=== PATIENT | male | born 1980 | race Caucasian/White ===

== ENCOUNTER 2021-06-09 13:55 | Outpatient (CLI) | payer OTHER ==
--- NOTE | 2021-06-09 18:52 | MRI Report ---
PROCEDURE: Cervical Spine W/O INDICATIONS: PARASTHESIA OF SKIN TECHNIQUE: Noncontrast sagittal T1 spin echo and T2 fast spin echo, sagittal STIR, foraminal oblique sagittal T2 fast spin echo, and axial gradient echo or T2 fast spin echo through the cervical spine. COMPARISON: None. FINDINGS: Image quality: Excellent. Alignment and Curvature: There is normal bony alignment. Bone Marrow: Marrow demonstrates normal overall signal. Spinal Cord: Visualized spinal cord has normal size and signal. No cerebellar tonsillar herniation. Paraspinous Soft Tissues: No paravertebral masses. Prevertebral soft tissues are normal in thicknes s. Discs: Minimal to mild desiccation is present throughout the cervical spine. C2-C3: No disc bulge, spinal stenosis or foraminal narrowing. C3-C4: Minimal disc bulge without spinal stenosis. No foraminal narrowing. C4-C5: Mild disc bulge without spinal stenosis. Minimal bilateral foraminal narrowing with uncoverte bral hypertrophy. C5-C6: Minimal disc bulge without spinal stenosis. Questionable minimal bilateral foraminal narrowin g. C6-C7: Minimal disc bulge without spinal stenosis. Mild left and [id number] right foraminal na rrowing with uncovertebral hypertrophy. C7-T1: No disc bulge, spinal stenosis or foraminal narrowing. IMPRESSION: Early degenerative changes most notable at C6-7 demonstrating mild to moderate foraminal narrowing. Reviewed by: Dedra Rivas MD on 06/09/2021 5:51 PM JAZMIN Approved by: Dedra Rivas MD on 06/09/2021 5:51 PM JAZMIN Station ID: [id number]
== END 2021-06-09 13:56 | disposition home or self-care (01) ==
LOC: DI 13:55
PROVIDERS: ATTEND Student in an Organized Health Care Education/Training Program
DX: M47.812 Spondylosis without myelopathy or radiculopathy, cervical region (principal)

== ENCOUNTER 2021-07-02 08:30 | Outpatient (CLI) | payer OTHER ==
[2021-07-02 09:15] VITALS: BP 131/98
--- NOTE | 2021-07-02 09:15 | SLEEP CARE CONSULTATION ---
Information from patient questionnaire entered by Barbara Juárez MA. I have reviewed and concur with the information entered by Barbara Juárez MA. This document represents the service I personally performed and the decisions made by me, Ivet Luis ARNP. History of Present Illness Service Date and Time: 07/02/2021 0830 Reason for Visit: New patient (ONSET 06/2011, ) Chief Complaint: reports: Insomnia, Unrefreshed sleep, Snoring, Excessive daytime sleepiness, Frequent awakenings at night Date of Onset: 7-12 YEARS Usual bedtime: 930 PM Time it takes to fall asleep: 2-3 HOURS Snores at night: Yes (SOMETIMES) Observed to quit breathing while asleep: No Sleeps alone due to snoring: No Number of times waking at night: 4-6 Reasons for waking at night: reports: Snoring, Bathroom, Other (noise; tossing/turning) Toss, Turn, or Twitch while sleeping: Yes Recalls having dreams: Yes Usually gets out of bed at: WEEK 0600 WEEKENDS [id number] Feels refreshed in the morning: No Morning headache: Yes (SOMETIMES; 1 time a week lasting couple hours; takes tylenol or motrin) Sleepy or fatigued during the day: Yes Ever fallen asleep while driving: No Takes day naps: No Dreams during day naps: No Prior sleep studies: Yes Year and Where: [facility] Additional HPI information: I had the pleasure of seeing KRISTA HARDIN today regarding the possibility of him having a sleep disorder. His current complaints are insomnia, unrefreshed sleep, snoring, excessive daytime sleepiness and frequent night awakenings. He is working with his allergy doctor for his chronic cough and it is not improving. At his last yearly appointment, they talked about his sleep and he was referred here because of his snoring and unrefreshed sleep. He states he is always tired in the mornings. He has difficulty going to sleep, can take 2-3 hours to fall asleep initially, and will take melatonin and sometimes Benadryl to go to sleep. He did have a sleep study in 2017 and was told he slept fine and recommended a stimulant in the morning. He started drinking caffeine drinks in the morning but did not like them and now he forces himself to drink a cup of coffee in the morning. He will wake up 4-6 times a night and sometimes not be able to go to sleep. He will toss and turn throughout the night. - Parasomnia Symptoms Ever been unable to move upon waking from sleep: No Walks in sleep: No Talks in sleep: No Ever acted out dreams in sleep: No Ever felt weak in the knees when startled or emotional: No Bothered by creepy, crawly, restless sensations in legs: No Problems with memory or concentration: No Subjective Initial [place] Sleepiness Scale score: 9 (06/2021) Past Medical History Past Medical History: reports: Arthritis, Anxiety, Depression, Other (tonsillectomy Dec 2019; bilateral carpal tunnel surgery; 2005 back and left foot surgery; 2012 CV joint surgery daisy shoulders) Social History The patient's occupation is a AM. Patient is and lives in [place]. Have you smoked in the past 12 months: No Alcohol use: Yes Alcohol amount and frequency: 12 X WEEKLY Caffeine use: Yes Caffeine amount and frequency: 1 X DAILY Family History Family history of sleep disordered breathing: Yes Family Hx Sleep Apnea: Mother: Snoring, Father: Snoring, Grandparent: Snoring Allergies and Home Medications Known drug allergies: No Drug allergies reviewed: Yes (NKDA) Home medication list reviewed: Yes Allergy and home medication list: Medications: Bupropion Omeprazole (for chronic cough, may be reflux related) Zyrtec Flonase Taking allergy shots for his allergies Review of Systems Weight gain over past 5 years: 20 - 30 Cardiovascular: denies: high blood pressure Respiratory: reports: chronic cough Gastrointestinal: reports: heartburn, other (reflux) Urinary: reports: frequency, urgency (sometimes) Neurological: reports: headaches Psychiatric: reports: anxiety (mild), depression (mild) Ear/Nose/Throat: reports: nasal congestion, tonsillectomy, wisdom teeth removed Endocrine: reports: sluggishness Musculoskeletal: reports: joint pain, neck pain, back pain, joint swelling, muscle pain or cramping, mobility problems Immunologic: reports: sneezing, itching, allergies to food or environment (environmental - grasses, pollens) Physical Exam Vital signs obtained and entered by: Pascale JUÁREZ CMA [facility] Blood Pressure: 131/98 (RESP 18, PULSE 71, RIGHT) Cuff size: wrist Heart Rate: 81 O2 Saturation: 97 (PAPER MASK) Height: 5 ft 10 in Weight: 200 lb (CLOTH) Body Mass Index: 28.7 BMI Classification: Overweight Neck circumference: 14 (INCHES) Mouth and throat: narrow oropharynx Soft palate: long Hard palate: normal Uvula: normal Uvula visualization: 50% Mallampati Class II Tongue: enlarged in size with teeth perez on lateral edges Tonsils: absent bilaterally Neck: normal w/o lymphadenopathy or thyromegaly Heart: regular rate and rhythm Lungs: clear bilaterally Impression and Plan 1. Suspected Obstructive Sleep Apnea-Hypopnea Syndrome, as suggested by a history of loud and irregular snoring, morning headache, frequent awakening during the night, unrefreshed sleep, and excessive daytime sleepiness. Narrow oropharynx and obesity are common predisposing factors for obstructive sleep apnea-hypopnea syndrome. I recommend proceeding to polysomnography to confirm the diagnosis and to assess severity. If the patient has significant sleep disordered breathing, a manual CPAP titration study will also be performed to find the optimal treatment pressure. I informed the patient of what the sleep studies involve and after some discussion, obtained agreement to proceed. The pathophysiology of obstructive sleep apnea-hypopnea syndrome was discussed with the patient and health risks of cardiovascular and cerebrovascular disease if not treated. Risks of drowsy driving discussed in detail and patient advised to avoid long distance driving and to mold puller at the first sign of drowsiness. Patient agreed to plan. * Schedule polysomnography * Avoid long distance driving or driving when feeling sleepy. * Avoid alcohol, sedative and muscle relaxant around bedtime. * Attempt to lose weight. * Review instructions provided by trained office staff on how to prepare for the sleep study. * Return for follow-up after sleep study completed. Counseling Topics: Weight loss health impact Visit Type: In Office Time Spent with Patient (minutes): 31 Provider Statement: I spent 100% of the Face to Face Visit with the patient with greater than 50% spent counseling the patient and coordination of care.
== END 2021-07-02 08:31 | disposition home or self-care (01) ==
LOC: SC 08:30
PROVIDERS: ATTEND Nurse Practitioner Family
DX: R06.83 Snoring (principal); R51.9 Headache, unspecified; G47.8 Other sleep disorders; G47.10 Hypersomnia, unspecified
CPT/HCPCS: 99203; 99212

== ENCOUNTER 2021-07-24 15:46 | Outpatient (CLI) | payer OTHER ==
[2021-07-24 16:24] VITALS: BP 118/72
--- NOTE | 2021-07-24 16:24 | SLEEP CARE CONSULTATION ---
Information from patient questionnaire entered by Barbara Juárez MA. I have reviewed and concur with the information entered by Barbara Juárez MA. This document represents the service I personally performed and the decisions made by , Ivet Luis ARNP. History of Present Illness Service Date and Time: 07/24/2021 1546 Initial [place] Sleepiness Scale score: 9 (06/2021) Current [place] Sleepiness Scale score: 10 (07/25/2021) Additional HPI information: KRISTA HARDIN returns for follow up and results of the recently performed home sleep study. I explained the pathophysiology behind obstructive sleep apnea. We then spent quite a bit of time discussing different treatment options. For mild obstructive sleep apnea, surgery and oral appliance are alternatives to nasal CPAP therapy but in moderate or severe cases, nasal CPAP is the most effective and reliable treatment. Because apnea is primarily in supine position, then positional management therapy could be effective. Methods discussed such as positioning with pillows to prevent supine sleep. I reviewed the impact of weight changes on sleep apnea and strongly recommended losing weight. After some discussion, the patient opted to go with the nasal CPAP therapy. Nasal autoCPAP set at 4-15 cmH20 will be ordered with rationale explained. A manual titration study will be ordered if unable to find optimal pressure with office adjustments. I explained how CPAP machine works and what to expect when using the machine. Using CPAP every night in order to get used to it was emphasized. Patient advised to put CPAP mask on before getting into bed so as not to fall asleep without CPAP. To assist acclimation to CPAP use, it could also be used for a short time during day while reading or watching TV. The patient was instructed to call the CPAP supplier to discuss any mechanical problem that may occur. If the mask given is uncomfortable or is difficult to keep on through the night even with adjustment, contact the CPAP supplier as many will replace with ano ther mask style if notified before 30 days. If snoring or perceives is not getting enough air or too much air from the machine, notify this office. Patient counseled not drink alcohol less than 4 hours before bedtime as it can increase snoring and apnea. Patient was cautioned about risks of drowsy driving until sleepiness symptoms resolve. Sleep Study - Results Type of Sleep Study: Home sleep study (F/U HOME STUDY, 07/08/2021 [facility], [facility],) Prior sleep studies: Yes Year and Where: [facility] Polysomnography/Home Sleep Study results: Physician Impression: The quality of the study is good. The length of the study is adequate (> 240 minutes). Please also see the tabulated and graphic data. 1. Obstructive Sleep Apnea-Hypopnea (ICD-10 G47.33), mild, with an AHI of 5.1/hr and viviana SaO2 of 83%. During the study, the patient had 9 apneas (9 obstructive, 0 central, 0 mixed) and 35 hypopneas. The longest episode lasted 82.5 seconds. The patient did not sleep supine during this study. 2. Hypoxemia (ICD-10 R09.02), minimal, with the lowest oxygen saturation of 83 % and 0.7 minutes with SaO2 under 90%. Baseline oxygen saturation was normal (Average oxygen saturation was 94%). Allergies and Home Medications Known drug allergies: No Drug allergies reviewed: Yes Home medication list reviewed: Yes (no changes) Review of Systems Review of systems same as previous: Yes (no changes) Physical Exam Vital signs obtained and entered by: Pascale JUÁREZ CMA [facility] Blood Pressure: 118/72 (RESP 16, PULSE 75, LEFT) Cuff size: wrist Heart Rate: 72 O2 Saturation: 96 (PAPER MASK) Height: 5 ft 10 in Weight: 196 lb Body Mass Index: 28.1 BMI Classification: Overweight Impression and Plan 1. Obstructive Sleep Apnea-Hypopnea Syndrome, mild, with lowest oxygen saturation of 83%. Obviously this is the cause of the patients symptoms of unrefreshed sleep, and excessive daytime sleepiness. Positive pressure therapy could benefit anxiety and depression. As mentioned above, the patient will be started on nasal autoCPAP therapy with pressure set at 4-15 cmH2O. Compliance guidelines also reviewed. A copy of compliance guidelines will be given for reference at check out. * Nasal auto CPAP therapy, pressure at 4-15 cm H2O. * Attempt to lose weight. * Avoid alcohol consumption near bedtime. * Avoid supine sleep until using CPAP. * The patient is again cautioned about driving until sleepiness completely resolves. * Return one month after CPAP obtained. I will assess response to therapy and compliance at that time. Counseling Topics: Weight loss health impact Visit Type: In Office Time Spent with Patient (minutes): 23 Provider Statement: I spent 100% of the Face to Face Visit with the patient with greater than 50% spent counseling the patient and coordination of care.
== END 2021-07-24 15:47 | disposition home or self-care (01) ==
LOC: SC 15:46
PROVIDERS: ATTEND Nurse Practitioner Family
DX: G47.33 Obstructive sleep apnea (adult) (pediatric) (principal); E66.3 Overweight; Z68.28 Body mass index [BMI] 28.0-28.9, adult
CPT/HCPCS: 99212; 99213

== ENCOUNTER 2021-11-06 08:27 | Outpatient (CLI) | payer OTHER ==
[2021-11-06 09:04] VITALS: BP 128/80
--- NOTE | 2021-11-06 09:04 | SLEEP CARE CONSULTATION ---
Information from patient questionnaire entered by Aaron Campa. I have reviewed and concur with the information entered by Aaron Campa. This document represents the service I personally performed and the decisions made by , Ivet Luis ARNP. History of Present Illness Service Date and Time: 11/06/2021826 Previous diagnosis: Mild, Obstructive Sleep Apnea-Hypopnea Syndrome AHI: 5.1 (in 2021) Reason for follow up: first compliance (SET UP 08/28/21) Equipment type: CPAP (ResMed) Equipment obtained from: [employer] (getting supplies) Mask style: Full face Mask brand: Resmed (Airfit F30i; AirTouch F20) Backup mask available: Yes (other mask) Prior sleep studies: Yes Year and Where: [facility] MD Type of Sleep Study: Home sleep study (F/U HOME STUDY, 07/08/2021 [facility], [facility],) HPI additional information: KRISTA HARDIN was diagnosed to have mild, AHI 5.1, obstructive sleep apnea- hypopnea syndrome and returned today for CPAP therapy first compliance follow- up. Sleep Study - Results Type of Sleep Study: Home sleep study (F/U HOME STUDY, 07/08/2021 [facility], [facility],) Prior sleep studies: Yes Year and Where: [facility] MD CPAP Compliance Data - Data Reviewed with Patient Average duration of nightly device use: 1 hour 54 minutes Compliance rate %: 2 ( days) Current pressure setting (cmH2O): 4-15 (median 7.0, avg 8.8, max 9.2) Average residual AHI: 3.6 Average large leak: 1.9 L/min Subjective Missed days of use due to: reports: mask issues, other (not able to sleep with mask on) Patient concerns: reports: mask discomfort, air blowing in eyes, mask leak noise, dry mouth, nose, throat (dry mouth; reduced with increasing humidity). denies: aerophagia, condensation in mask/hose, nasal congestion, epistaxis Observed to snore while using device: No Current pressure setting perceived as: comfortable On therapy, patient: reports: other (no improvement so far, not able to use CPAP) Initial [place] Sleepiness Scale score: 9 (06/2021) Current [place] Sleepiness Scale score: 11 (11/06/21) Allergies and Home Medications Drug allergies reviewed: Yes (NKDA) Home medication list reviewed: Yes (no changes) Review of Systems Review of systems same as previous: Yes (no changes) Physical Exam Vital signs obtained and entered by: SOILA AGUILERA Blood Pressure: 128/80 (LEFT ARM ) Cuff size: regular Heart Rate: 87 O2 Saturation: 96 Height: 5 ft 10 in Weight: 189 lb Body Mass Index: 27.1 BMI Classification: Overweight Impression and Plan 1. Obstructive Sleep Apnea-Hypopnea Syndrome, mild, with poor treatment compliance and good apnea control. On CPAP therapy, the patient has better sleep quality and is more rested overall. Patient has had many issues with the mask leaking and blowing into his eyes. He started with an Airfit F30i and then an AirTouch F20 but could not sleep with the mask leaking. He tried for about a month and then stopped until he could come in her for help. I fitted him with an nasal pillows Dreamwear mask since he is a side sleeper to see if this works better for him. He may also try a CPAP pillow that he can find commercially. He voiced understanding and will give this all a try. I will follow up with him in 1-2 months to recheck compliance and see how he is doing. The patients pressure will be changed to autoCPAP 7-10 cmH20. Patient advised to contact me if pressure change is uncomfortable so that it can be adjusted. Goals for apnea control discussed. Patient's apnea severity and rationale for treatment to reduce apnea, improve sleep quality and reduce cardiovascular and cerebrovascular events was reviewed. I also reviewed the benefit of consistent device use of CPAP for depression/anxiety. * Mask fitted in office for nasal pillows mask, Dreamwear with small cushion, medium headgear. * Change auto CPAP pressure to 7-10 cmH2O * Notify me if snoring with mask or feeling that the pressure is too much or too little * Call this office if any problems using CPAP * Return for follow up in 1-2 months, or sooner if concerns arise Counseling Topics: Spare mask, Weight loss health impact Visit Type: In Office Time Spent with Patient (minutes): 24 Provider Statement: I spent 100% of the Face to Face Visit with the patient with greater than 50% spent counseling the patient and coordination of care.
== END 2021-11-06 08:28 | disposition home or self-care (01) ==
LOC: SC 08:27
PROVIDERS: ATTEND Nurse Practitioner Family
DX: G47.33 Obstructive sleep apnea (adult) (pediatric) (principal)
CPT/HCPCS: 99212; 99213